=== PATIENT | male | born 1950 | race Caucasian/White ===

== ENCOUNTER → 2016-11-23 | Outpatient (CLI) | payer MEDICARE, OTHER ==
[~2016-11-23] MED LIST: ALBUTEROL17 GM INH; ALPRAZOLAM PO; ASPIRIN PO; EFFEXOR XR PO; FLORINEF ACETA0.1 MG PO; IBUPROFEN PO; LEVAQUIN PO; LOPRESSOR PO; MIDODRINE PO; PERCOCET PO; PLAVIX PO; PRAVACHOL PO; PROTONIX PO
--- NOTE | ~2016-11-23 | US37 ---
[facility] A Service of [facility] & [facility] RADIOLOGY TEXT RESULTS PATIENT: JAYDEN ANDRES LOCATION: CNIV : 50 UNIT #: [id number] AGE: [address]: Daylin Lanza MD SEX: M ORDER DR: [id number] [facility] [address] [facility]. [place], [place] [address] [id number] O MR#: [id number] [facility] #: [id number] NAME: JAYDEN ANDRES. : 1950 SEX: M STUDY DATE/TIME: 11/23/2016 10:37 UNIT: [facility] ROOM: STUDY DESCRIPTION: US Carotid W/Doppler Bilateral Attending Physician: Daylin Lanza M.D. Referring Physician: Daylin Lanza M.D. Ordering Physician: Daylin Lanza M.D. Primary Care Physician: Daylin Lanza M.D. MEDICAL IMAGING REPORT This report is preliminary unless electronic signature is present EXAM Bilateral carotid duplex HISTORY Bilateral carotid endarterectomy. Carotid stenosis. FINDINGS Duplex imaging of the carotid arteries was performed. The right common carotid artery is patent with scattered plaque throughout. Velocity in the right common carotid is low at 25 cm/sec. The internal carotid artery is dilated, consistent with a history of endarterectomy and has mild intimal thickening. Velocity in the right internal carotid artery is 62 cm/sec proximally, 94 mid-portion, and 82 distally. External is 67 cm/sec. Right ICA:CCA ratio is 3.2. The ratio was increased because of the low velocity in the common carotid artery. On the left side, common carotid artery is patent with scattered plaque throughout. Velocity in the left common carotid is 57 cm/sec, internal is 56 proximally, 85 mid-portion, 93 distally. The internal carotid artery has mild plaque post-endarterectomy. Velocity in the left external carotid artery is 74 cm/sec. Left ICA:CCA ratio is 1.6. Antegrade flow is seen in the right and left vertebral arteries. IMPRESSION 1. The right and left internal carotid arteries are patent with minimal plaque and less than 60% stenosis post-endarterectomy. 2. The right common carotid artery proximally has low velocities and more proximal narrowing cannot be excluded. CT angiogram of the carotid arteries can be considered if there is clinical suspicion for proximal carotid stenosis. Antegrade flow is seen in the right and left vertebral arteries. [facility] A Service of [facility] RADIOLOGY TEXT RESULTS PATIENT: JAYDEN ANDRES LOCATION: [facility] : 50 UNIT #: [id number] AGE: [address]: Daylin Lanza MD SEX: M ORDER DR: Dictated by... Db Chapman M.D. THIS IS AN ELECTRONICALLY VERIFIED REPORT Db Chapman M.D. at 11/24/2016 11:49 AM /ki TD: 11/23/2016 20:43 JOB #: [id number] MEDICAL IMAGING REPORT Page 1 of 1 COPY
== END | disposition home or self-care (01) ==
LOC: CNIV 10:14
DX: I65.23 Occlusion and stenosis of bilateral carotid arteries (principal)
CPT/HCPCS: 93880

== ENCOUNTER → 2016-11-26 | Outpatient (CLI) | payer MEDICARE, OTHER ==
--- NOTE | ~2016-11-26 | CR230 ---
[facility] A Service of [facility] & [facility] RADIOLOGY TEXT RESULTS PATIENT: JAYDEN ANDRES LOCATION: [facility] : 50 UNIT #: [id number] AGE: [address]: Daylin Lanza MD SEX: M ORDER DR: [id number] [facility] [address] [facility]. [place], [place] [address] [id number] O MR#: [id number] Acc #: [id number] NAME: JAYDEN ANDRES. : 1950 SEX: M STUDY DATE/TIME: 11/26/2016 12:05 UNIT: [facility] ROOM: STUDY DESCRIPTION: CR Shoulder Min 2 View Rt Attending Physician: Daylin Lanza M.D. Referring Physician: Daylin Lanza M.D. Ordering Physician: Daylin Lanza M.D. Primary Care Physician: Daylin Lanza M.D. MEDICAL IMAGING REPORT This report is preliminary unless electronic signature is present EXAM Right shoulder 11/26/2016 HISTORY 66-year-old male with right shoulder pain for [address] chest 07/31/2010 and 02/26/2012. FINDINGS 3 views of the right shoulder demonstrate no acute fracture or dislocation. There are mild degenerative changes of the acromioclavicular joint. There is a 1.8 cm loose body projecting along the anterior-superior aspect of the glenohumeral joint. Soft tissues are unremarkable. IMPRESSION 1. No acute fracture or dislocation. 2. Mild acromioclavicular joint arthrosis. 3. 1.8 cm loose body projecting along the anterosuperior aspect of the glenohumeral joint. If clinical symptoms persist, consider further characterization with MRI of the right shoulder. Dictated by... Kenan Nielsen M.D. THIS IS AN ELECTRONICALLY VERIFIED REPORT Kenan Nielsne M.D. at 11/27/2016 8:33 AM ARLETH/ki TD: 11/26/2016 23:44 [facility] A Service of [facility] & [facility] RADIOLOGY TEXT RESULTS PATIENT: JAYDEN ANDRES LOCATION: [facility] #: [id number] : 50 UNIT #: [id number] AGE: [address]: Daylin Lanza MD SEX: M ORDER DR: JOB #: [id number] MEDICAL IMAGING REPORT Page 1 of 1 COPY
== END | disposition home or self-care (01) ==
LOC: CRAD 11:46
DX: M25.511 Pain in right shoulder (principal); M19.011 Primary osteoarthritis, right shoulder; M24.011 Loose body in right shoulder
CPT/HCPCS: 73030

== ENCOUNTER → 2016-11-30 | Outpatient (CLI) | payer MEDICARE, OTHER ==
--- NOTE | ~2016-11-30 | MR165 ---
[facility] A Service of [facility] & [facility] RADIOLOGY TEXT RESULTS PATIENT: JAYDEN ANDRES LOCATION: [facility] : 50 UNIT #: [id number] AGE: [address]: Daylin Lanza MD SEX: M ORDER DR: [id number] [address] [address] [id number] O MR#: [id number] Acc #: [id number] NAME: JAYDEN ANDRES : 1950 SEX: M STUDY DATE/TIME: 11/30/2016 15:46 UNIT: [facility] ROOM: STUDY DESCRIPTION: MR Shoulder Wo Contrast Rt Attending Physician: Daylin Lanza M.D. Referring Physician: Daylin Lanza M.D. Ordering Physician: Daylin Lanza M.D. Primary Care Physician: Daylin Lanza M.D. MRI CENTER REPORT This report is preliminary unless electronic signature is present. EXAM MRI of the right shoulder HISTORY Injured shoulder 11/18/2016. States trying to pull off hospital ID bracelet, heard and felt a pop. Increasing shoulder pain. Loose body noted on conventional radiographs. COMPARISON Right shoulder films, 11/26/2016 FINDINGS Multiplanar multiecho imaging was performed of the right shoulder utilizing a high field magnet and dedicated protocol. Minimal AC joint arthropathy. No focal marrow edema. Small joint effusion. Large ossific loose body anterior-superior joint space possibly extending into the subacromial subdeltoid bursa. Loose body measures about 1.0 x 1.0 x 1.6 cm. There is extensive full-thickness tears involving the supraspinatus and infraspinatus tendons with the tear estimated over 4.0 cm AP dimension and about 3.3 cm in maximum medial to lateral dimension. There is retraction of the supraspinatus tendon back to the level of the mid humeral head. This is superimposed on tendinopathy. Teres minor tendon appears intact. The subscapularis tendon appears intact. Mild atrophy of the supraspinatus and infraspinatus muscles. Degeneration of the superior labrum with truncation of the labrum and lack of a well-defined biceps anchor as well as lack of visualization of the long tendon of the biceps within the proximal bicipital groove suggests a biceps tendon tear. Mild degeneration in the anterior and posterior labrum. The deltoid and extraarticular soft tissues appear intact. [facility] A Service of [facility] RADIOLOGY TEXT RESULTS PATIENT: JAYDEN ANDRES LOCATION: [facility] : 50 UNIT #: [id number] AGE: [address]: Daylin Lanza MD SEX: M ORDER DR: IMPRESSION 1. Full-thickness and complete tear of the supraspinatus tendon as well as an extensive full-thickness tear extending into the infraspinatus tendon. Overall the tear is estimated about 3.0 x 4.0 cm. 2. Small glenohumeral joint effusion as well as fluid in the subacromial subdeltoid bursa and a sizeable 1.6 cm loose body anterior shoulder joint. 3. Supraspinatus and infraspinatus tendinopathy with mild muscle atrophy. 4. Suspected tear of the long tendon of the biceps. Dictated by... Marcos Avendaño M.D. THIS IS AN ELECTRONICALLY VERIFIED REPORT Marcos Avendaño M.D. at 12/04/2016 7:25 AM Haley TD: 12/03/2016 08:37 JOB #: [id number] MRI CENTER REPORT Page 1 of 1
== END | disposition home or self-care (01) ==
LOC: SMRI 11:41
DX: M24.011 Loose body in right shoulder (principal); S46.811A Strain of other muscles, fascia and tendons at shoulder and upper arm level, right arm, initial encounter; M25.411 Effusion, right shoulder; M75.81 Other shoulder lesions, right shoulder
CPT/HCPCS: 73221